=== PATIENT | male | born 1965 | race Caucasian/White ===

== ENCOUNTER 2022-11-29 03:15 | Inpatient (IN) ==
[2022-11-29] MEDS ORDERED: LIBRIUM PO PRN ×2 (14:14→18:00)
[2022-11-29] MEDS ORDERED: TAB-A-VITE PO SCH (15:00)
[2022-11-29] MEDS ORDERED: NS 1,000 ML IV 1,000 ML with MVI INJ (ADULT) 10 ML IV SCH ×2 (15:00)
[2022-11-29] MEDS ORDERED: THIAMINE HCL INJ IM SCH (15:00)
[2022-11-29 16:12] LABS: ABG ALLEN TEST POS; ABG BASE EXCESS 3.3 mmol/L (-2.0-2.0); ABG HCO3 28.5 mmol/L (22-26)
[2022-11-29 16:35] LABS: BASOPHILS % (AUTO) 0.4 % (0.2-1.0); EOSINOPHILS # (AUTO) 0.2 x10^3/uL (0.0-0.2); EOSINOPHILS % (AUTO) 3.2 % (0.9-2.9); HEMATOCRIT 24.4 % (42.0-54.0); HEMOGLOBIN 8.4 g/dL (13.5-18.0); LYMPHOCYTES # (AUTO) 1.6 X10^3/uL (1.3-2.9); LYMPHOCYTES % (AUTO) 23.7 % (21.0-51.0); MEAN CORPUSCULAR HEMOGLOBIN 34.4 pg (27.0-34.0); MEAN CORPUSCULAR HGB CONC 34.2 g/dL (33.0-35.0); MEAN CORPUSCULAR VOLUME 100.5 fL (80.0-100.0); MEAN PLATELET VOLUME 7.8 fL (7.4-11.0); MONOCYTES # (AUTO) 0.9 x10^3/uL (0.3-0.8); NEUTROPHILS # (AUTO) 4.1 x10^3/uL (2.2-4.8); NEUTROPHILS % (AUTO) 59.7 % (42.0-75.0); PLATELET COUNT 278 X10^3/uL (150.0-450.0); RED BLOOD COUNT 2.43 X10^6/uL (4.7-6.0); RED CELL DISTRIBUTION WIDTH 14.5 % (11.6-16.5); WHITE BLOOD COUNT 6.8 X10^3/uL (3.6-10.0)
[2022-11-29] MEDS ORDERED: PROVENTIL NEB TX 0.083% 2.5MG/ 3ML ONE (16:39)
--- NOTE | 2022-11-29 16:44 | DR.H&P ---
H&P - History & Physical for Day of: H&P Date: 11/29/22 - Chief Complaint Chief Complaint: weakness, altered mental status, alcohol abuse - History of Present Illness History of Present Illness: Patient is a 57 year old male that is a direct admit from Dr. Loco's office secondary to generalized weakness, altered mental status and ETOH abuse. Girlfriend presented with patient and reports that he has been weak since being discharged from [facility] on the . Reported that he stayed 11 days at [facility] due to N/V, dehydratiom, hypokalemia, hyponatremia and histor of bladder cancer. Reports that the patient fell this morning while trying to get to the restroom. Patient will be admitted for further evaluation. - Past Medical History Past Medical History: COPD, Hypertension, Liver Disease - Social History Alcohol Use: Heavy, DAILY Drug Use: None - Review of Systems Constitutional: See HPI Eyes: See HPI ENT: See HPI Respiratory: See HPI Cardiovascular: See HPI Gastrointestinal: See HPI Genitourinary: See HPI Musculoskeletal: See HPI Skin: See HPI Neurological: See HPI - Physical Exam Vital Signs: Vital Signs Temperature 99.4 F Pulse Rate 97 Respiratory Rate 20 O2 Sat by Pulse Oximetry 93 11/29/22 16:00 11/29/22 16:14 11/29/22 16:12 Temperature 99.4 F Pulse Rate 97 H Pulse Rhythm [Apical] Regular Pulse Strength [Apical] Normal Respiratory Rate 20 Respiratory Depth Shallow Respiratory Effort Non-Labored Respiratory Pattern Irregular O2 Sat by Pulse Oximetry 93 L Oxygen Delivery Method Room Air Weight 105 lb 8 oz Oriented: Time, Person, Place Eyes: Other (jaundice) Ear: Normal Nose: Normal Throat: Normal Respiratory: Diminished Throughout Cardiovascular: Tachycardia : Normal Auscultation: Bowel Sounds: Normal Palpation: Normal Tenderness: Normal Skin: Decreased Turgur Musculoskeletal: Normal Psychiatric: Normal Mood Description: Flat Affect: Flat Speech Pattern: Clear - Assessment/Plan (1) ETOH abuse Status: Acute (2) Altered mental state Status: Acute (3) Weakness Status: Acute - Allergies Allergies/Adverse Reactions: Allergies Allergy/AdvReac Type Severity Reaction Status Date / Time No Known Drug Allergies Allergy Verified 11/29/22 16:12
[2022-11-29 16:49] LABS: AMMONIA 40 umol/L (11-32)
[2022-11-29 16:59] LABS: ALANINE AMINOTRANSFERASE 33 Units/L (12-78); ALKALINE PHOSPHATASE 109 Units/L (46-116); AMYLASE 67 Units/L (25-115); ASPARTATE AMINO TRANSFERASE 50 Units/L (15-37); BLOOD UREA NITROGEN 7 mg/dL (7-18); CALCIUM 8.2 mg/dL (8.5-10.1); CARBON DIOXIDE 27.8 mmol/L (21-32); CHLORIDE 102 mmol/L (98-107); COR CA(FOR HYPOALB) 9.8 mg/dL (8.5-10.1); CREATININE 0.75 mg/dL (0.70-1.30); FREE T4 (FREE THYROXINE) 1.43 ng/dL (0.76-1.46); GLUCOSE 107 mg/dL (65-99); LIPASE 53 Units/L (73-393); SODIUM 138 mmol/L (136-145); TOTAL PROTEIN 5.3 g/dL (6.4-8.2); TSH (3RD GENERATION) 0.829 uIU/mL (0.358-3.74); eGFR NON BLACK RACES > 60 (>60)
[2022-11-29] MEDS ORDERED: PROVENTIL NEB TX 0.083% 2.5MG/ 3ML NEB SCH (17:00)
[2022-11-29 17:01] LABS: POTASSIUM 2.8 mmol/L (3.5-5.1)
[2022-11-29 17:12] LABS: INR 1.15 (0.8-1.3)
[2022-11-29 17:13] VITALS: BMI 15.5
[2022-11-29] MEDS ORDERED: MICRO K EXTEN CAP 10 MEQ PO PRN (17:19)
[2022-11-29] MEDS ORDERED: K-DUR TAB 20 MEQ PO PRN (17:19)
[2022-11-29] MEDS ORDERED: POTASSIUM CHL 60 MEQ/NS 0.45% 500 ML IV PRN (17:19)
[2022-11-29] MEDS ORDERED: POTASSIUM CHLORIDE LIQ PO PRN (17:19)
[2022-11-29] MEDS ORDERED: POTASSIUM CHL 40 MEQ/NS 0.45% 500 ML IV PRN (17:19)
[2022-11-29] MEDS ORDERED: K-RIDER 10 MEQ/NS 100 ML 10 MEQ/100 ML BAG IV PRN (17:19)
[2022-11-29] MEDS: PROVENTIL NEB TX 0.083% 2.5MG/ 3ML NEB SCH ×2 (17:52→21:25)
[2022-11-29] MEDS: NS 1,000 ML IV 1,000 ML with MVI INJ (ADULT) 10 ML IV SCH ×2 (17:56)
[2022-11-29] MEDS: MAGNESIUM SULFATE 1 GRAM/100 mL PREMIX 1 G/100 ML BAG IV PRN ×6 (18:14→23:13)
[2022-11-29] MEDS: KLOR-CON PO PRN ×2 (18:15→23:25)
[2022-11-29] MEDS: NICOTINE PATCH TD SCH (20:14)
[2022-11-29] MEDS ORDERED: PULMICORT NEB TX 0.5 MG NEB SCH (21:00)
[2022-11-29] MEDS: PULMICORT NEB TX 0.5 MG NEB SCH (21:35)
[2022-11-29 21:37] LABS: BILIRUBIN,URINE NEGATIVE (NEGATIVE); BLOOD/HEMOGLOBIN,URINE 2+ (NEGATIVE); GLUCOSE, URINE NEGATIVE (NEGATIVE); KETONES,URINE NEGATIVE (NEGATIVE); LEUKOCYTE ESTERASE ,URINE 1+ (NEGATIVE); NITRITES,URINE NEGATIVE (NEGATIVE); PROTEIN,URINE 1+ (NEGATIVE); UROBILINOGEN,URINE NORMAL (NORMAL)
[2022-11-29 21:42] LABS: APPEARANCE,URINE CLEAR (CLEAR); COLOR,URINE YELLOW (YELLOW)
[2022-11-29 21:43] LABS: BACTERIA,URINE TRACE /HPF (NEGATIVE); HYALINE CASTS, URINE FEW /LPF (NEGATIVE); SQUAMOUS EPITHELIAL CELL,UR FEW /HPF (NEGATIVE)
[2022-11-30] MEDS: NS 1,000 ML IV 1,000 ML with MVI INJ (ADULT) 10 ML IV SCH ×8 (03:53→17:27)
[2022-11-30 05:14] LABS: BASOPHILS # (AUTO) 0.1 X10^3/uL (0.0-0.1); EOSINOPHILS # (AUTO) 0.2 x10^3/uL (0.0-0.2); EOSINOPHILS % (AUTO) 3.7 % (0.9-2.9); HEMATOCRIT 25.8 % (42.0-54.0); LYMPHOCYTES # (AUTO) 1.4 X10^3/uL (1.3-2.9); LYMPHOCYTES % (AUTO) 24.1 % (21.0-51.0); MEAN CORPUSCULAR HEMOGLOBIN 35.1 pg (27.0-34.0); MEAN CORPUSCULAR HGB CONC 34.8 g/dL (33.0-35.0); MEAN CORPUSCULAR VOLUME 100.9 fL (80.0-100.0); MEAN PLATELET VOLUME 8.7 fL (7.4-11.0); MONOCYTES # (AUTO) 0.5 x10^3/uL (0.3-0.8); MONOCYTES % (AUTO) 7.6 % (0.0-13.0); NEUTROPHILS # (AUTO) 3.8 x10^3/uL (2.2-4.8); NEUTROPHILS % (AUTO) 63.6 % (42.0-75.0); PLATELET COUNT 272 X10^3/uL (150.0-450.0); RED BLOOD COUNT 2.55 X10^6/uL (4.7-6.0)
[2022-11-30 05:31] LABS: ALANINE AMINOTRANSFERASE 32 Units/L (12-78); ALKALINE PHOSPHATASE 118 Units/L (46-116); ASPARTATE AMINO TRANSFERASE 54 Units/L (15-37); BLOOD UREA NITROGEN 7 mg/dL (7-18); CHLORIDE 103 mmol/L (98-107); COR CA(FOR HYPOALB) 9.6 mg/dL (8.5-10.1); COR NA(FOR HYPERGLY) 138 mmol/L (136-145); CREATININE 0.72 mg/dL (0.70-1.30); GLUCOSE 115 mg/dL (65-99); POTASSIUM 3.7 mmol/L (3.5-5.1); SODIUM 138 mmol/L (136-145); TOTAL PROTEIN 5.5 g/dL (6.4-8.2); eGFR NON BLACK RACES > 60 (>60)
--- NOTE | 2022-11-30 07:58 | RAD ---
HISTORYDehydrationSTUDYCHEST, 1 VIEWCOMPARISONNone.TECHNIQUEPA or AP view of the chestFINDINGSCardiac and mediastinal contours are within normal limits. Lungs are hyperexpanded. Right costophrenic sulcus is not completely imaged. No visualized consolidation or segmental lung collapse. No discernible pleural effusion or pneumothorax. ORIF of the left humerus noted.IMPRESSIONHyperexpanded lungs can be seen with COPD or a good inspiratory effort. Right costophrenic sulcus not completely imaged.Electronically signed by: Frederick Duncan (Nov 30, 2022 07:56:26)
[2022-11-30] MEDS: THIAMINE HCL INJ IVP SCH ×2 (08:17→21:07)
[2022-11-30] MEDS: KLOR-CON PO PRN (08:17)
[2022-11-30] MEDS: TAB-A-VITE PO SCH (08:17)
[2022-11-30] MEDS: NICOTINE PATCH TD SCH (08:17)
[2022-11-30] MEDS: PROTONIX INJ 40 MG VIAL IVP SCH ×2 (08:41→21:06)
[2022-11-30] MEDS: PROVENTIL NEB TX 0.083% 2.5MG/ 3ML NEB SCH ×4 (09:00→21:37)
[2022-11-30] MEDS: PULMICORT NEB TX 0.5 MG NEB SCH ×2 (09:01→21:37)
[2022-11-30 09:12] LABS: RETICULOCYTE % 0.88 % (0.8-2.2)
[2022-11-30 09:14] LABS: IRON 35 ug/dL (50-175)
[2022-11-30] MEDS: LIBRIUM PO SCH ×3 (09:57→21:07)
[2022-11-30] MEDS: BUTT CREAM (COMPOUND) TOP PRN ×2 (11:02→18:52)
[2022-11-30] MEDS: HEMOCYTE-PLUS PO SCH (14:04)
--- NOTE | 2022-11-30 17:44 | PCM.PROG ---
Progress Note - Progress Note for Day of Date of Exam: 11/30/22 - Subjective Subjective: PT IS 57 WM, DIRECT ADMIT FROM DR LEE[facility]S [place] OFFICE WITH WEAKNESS AND HYPOKALEMIA. PT HAD INCREASED CONFUSION, WITH HISTORY OF ALCOHOLIC LIVER DISEASE. PT AMMONIA ON ADMISSION WAS 40. PT WAS STARTED ON ELECTROLYTE REPLACEMENT WITH IMPROVING WEAKNESS. PT K AT 3.7 FROM 2.8 ON ADMISSION. PT HAS CXR WITH COPD FINDINGS. PT WAS HYPOXIC ON ABG, O2 SAT ON 2L 99% THIS AM. - Past Medical Family Social History Past Med/Fam/Surg Hx: No changes since H&P Allergies: Allergies No Known Drug Allergies Allergy (Verified 11/29/22 16:12) - Review of Systems ROS: No change since H&P - Vital Signs and I&O's Vital Signs: Vital Signs Temperature 98.1 F Temperature 98.2 F Pulse Rate 112 Pulse Rate 105 Pulse Rate 110 Pulse Rate 102 Pulse Rate 106 Pulse Rate 106 Pulse Rate 104 Pulse Rate 104 Pulse Rate 104 Pulse Rate 96 Pulse Rate 101 Pulse Rate 101 Pulse Rate 108 Respiratory Rate 16 Respiratory Rate 14 Respiratory Rate 34 Respiratory Rate 22 Respiratory Rate 23 Respiratory Rate 26 Respiratory Rate 23 Respiratory Rate 20 Respiratory Rate 30 Respiratory Rate 16 Respiratory Rate 15 Respiratory Rate 16 Respiratory Rate 20 Blood Pressure 152/77 Blood Pressure 144/86 Blood Pressure 144/86 Blood Pressure 113/69 Blood Pressure 105/68 O2 Sat by Pulse Oximetry 97 O2 Sat by Pulse Oximetry 99 O2 Sat by Pulse Oximetry 100 O2 Sat by Pulse Oximetry 98 O2 Sat by Pulse Oximetry 98 O2 Sat by Pulse Oximetry 98 O2 Sat by Pulse Oximetry 98 O2 Sat by Pulse Oximetry 93 O2 Sat by Pulse Oximetry 100 O2 Sat by Pulse Oximetry 99 O2 Sat by Pulse Oximetry 100 O2 Sat by Pulse Oximetry 97 11/30/22 14:00 11/30/22 15:00 11/30/22 16:00 Temperature 98.1 F Pulse Rate 106 H 106 H 102 H Respiratory Rate 26 H 23 22 O2 Sat by Pulse Oximetry 98 98 100 Oxygen Delivery Method Nasal Cannula Oxygen Flow Rate 2 Blood Pressure 144/86 Blood Pressure Mean Blood Pressure Source Automatic Cuff Blood Pressure Position Semi Langston's 11/30/22 16:00 11/30/22 16:39 11/30/22 16:39 Temperature Pulse Rate 110 H 105 H Respiratory Rate 34 H 14 O2 Sat by Pulse Oximetry 99 Oxygen Delivery Method Oxygen Flow Rate Blood Pressure 144/86 Blood Pressure Mean 109 Blood Pressure Source Blood Pressure Position 11/30/22 17:00 11/30/22 17:00 Temperature Pulse Rate 112 H Respiratory Rate 16 O2 Sat by Pulse Oximetry 97 Oxygen Delivery Method Oxygen Flow Rate Blood Pressure 152/77 Blood Pressure Mean 104 Blood Pressure Source Blood Pressure Position Intake and Output: Intake & Output 11/28/22 11/29/22 11/30/22 12/01/22 11:59 11:59 11:59 11:59 Intake Total 2455 / 2455 1135 / 1135 Balance 2455 / 2455 1135 / 1135 - Physical Exam Oriented: Time, Person, Place Eyes: Other (jaundice) Ear: Normal Nose: Normal Throat: Normal Respiratory: Diminished, Wheezes Cardiovascular: Tachycardia : Normal Auscultation: Bowel Sounds: Normal Tenderness: Normal Skin: Decreased Turgur Musculoskeletal: Normal Psychiatric: Anxiety Affect: Anxious Speech Pattern: Appropriate, Delayed - Laboratory and Diagnostics Result Diagrams: 11/30/22 04:16 11/30/22 04:16 Labs: Laboratory WBC 6.0 X10^3/uL (3.6-10.0) 11/30/22 04:16 RBC 2.55 X10^6/uL (4.7-6.0) L 11/30/22 04:16 Hgb 9.0 g/dL (13.5-18.0) L 11/30/22 04:16 Hct 25.8 % (42.0-54.0) L 11/30/22 04:16 MCV 100.9 fL (80.0-100.0) H 11/30/22 04:16 MCH 35.1 pg (27.0-34.0) H 11/30/22 04:16 MCHC 34.8 g/dL (33.0-35.0) 11/30/22 04:16 RDW 15.0 % (11.6-16.5) 11/30/22 04:16 Plt Count 272 X10^3/uL (150.0-450.0) 11/30/22 04:16 MPV 8.7 fL (7.4-11.0) 11/30/22 04:16 Neut % (Auto) 63.6 % (42.0-75.0) 11/30/22 04:16 Lymph % (Auto) 24.1 % (21.0-51.0) 11/30/22 04:16 [place] % (Auto) 7.6 % (0.0-13.0) 11/30/22 04:16 Eos % (Auto) 3.7 % (0.9-2.9) H 11/30/22 04:16 Baso % (Auto) 1.0 % (0.2-1.0) 11/30/22 04:16 Neut # (Auto) 3.8 x10^3/uL (2.2-4.8) 11/30/22 04:16 Lymph # (Auto) 1.4 X10^3/uL (1.3-2.9) 11/30/22 04:16 [place] # (Auto) 0.5 x10^3/uL (0.3-0.8) 11/30/22 04:16 Eos # (Auto) 0.2 x10^3/uL (0.0-0.2) 11/30/22 04:16 Baso # (Auto) 0.1 X10^3/uL (0.0-0.1) 11/30/22 04:16 Absolute Nucleated RBC 0.1 /100WBC 11/30/22 04:16 Absolute Retic 0.0228 10^6/uL 11/30/22 04:16 Percent Retic 0.88 % (0.8-2.2) 11/30/22 04:16 PT 14.5 SECONDS (11.8-14.3) 11/29/22 16:25 INR Target Range - 11/29/22 16:25 INR 1.15 (0.8-1.3) 11/29/22 16:25 Sample Site Lrad 11/29/22 16:10 ABG pH 7.410 (7.35-7.45) 11/29/22 16:10 ABG pCO2 45.0 mmHg (35.0-45.0) 11/29/22 16:10 ABG pO2 62.0 mmHg (80.0-100.0) L 11/29/22 16:10 ABG HCO3 28.5 mmol/L (22-26) H 11/29/22 16:10 ABG O2 Saturation 92.0 % (90-100) 11/29/22 16:10 ABG Base Excess 3.3 mmol/L (-2.0-2.0) H 11/29/22 16:10 Odin Test Pos 11/29/22 16:10 A-a Gradient 31.0 mmHg 11/29/22 16:10 FiO2 21.0 11/29/22 16:10 Blood Gas Comments Aki well ms 11/29/22 16:10 Sodium 138 mmol/L (136-145) 11/30/22 04:16 Corrected Sodium 138 mmol/L (136-145) 11/30/22 04:16 Potassium 3.7 mmol/L (3.5-5.1) 11/30/22 04:16 Chloride 103 mmol/L (98-107) 11/30/22 04:16 Carbon Dioxide 29.0 mmol/L (21-32) 11/30/22 04:16 BUN 7 mg/dL (7-18) 11/30/22 04:16 Creatinine 0.72 mg/dL (0.70-1.30) 11/30/22 04:16 Est GFR (MDRD) Af Amer > 60 (>60) 11/30/22 04:16 Est GFR (MDRD) Non-Af > 60 (>60) 11/30/22 04:16 Glucose 115 mg/dL (65-99) H 11/30/22 04:16 Calcium 8.0 mg/dL (8.5-10.1) L 11/30/22 04:16 Corrected Calcium 9.6 mg/dL (8.5-10.1) 11/30/22 04:16 Magnesium 2.0 mg/dL (2.0-2.9) 11/30/22 04:16 Iron 35 ug/dL (50-175) L 11/30/22 04:16 Ferritin 631 ng/mL (26-388) H 11/30/22 04:16 Total Bilirubin 0.30 mg/dL (0.2-1.0) 11/30/22 04:16 AST 54 Units/L (15-37) H 11/30/22 04:16 ALT 32 Units/L (12-78) 11/30/22 04:16 Alkaline Phosphatase 118 Units/L (46-116) H 11/30/22 04:16 Ammonia 40 umol/L (11-32) H 11/29/22 16:25 Total Protein 5.5 g/dL (6.4-8.2) L 11/30/22 04:16 Albumin 2.0 g/dL (3.4-5.0) L 11/30/22 04:16 Globulin 3.5 g/dL (2.5-4.5) 11/30/22 04:16 Albumin/Globulin Ratio 0.6 Ratio (1.1-2.1) L 11/30/22 04:16 Amylase 67 Units/L (25-115) 11/29/22 16:25 Lipase 53 Units/L (73-393) L 11/29/22 16:25 Vitamin B12 > 2000 pg/mL (193-986) H 11/30/22 04:16 Folate 13.0 ng/mL (>8.6) 11/30/22 04:16 Free T4 1.43 ng/dL (0.76-1.46) 11/29/22 16:25 TSH 3rd Generation 0.829 uIU/mL (0.358-3.74) 11/29/22 16:25 Specimen Type Clean catch urine 11/29/22 21:22 Urine Color Yellow (YELLOW) 11/29/22 21: Urine Appearance Clear (CLEAR) 11/29/22 21: Urine pH 6.0 (5.0 - 8.0) 11/29/22 21: Ur Specific [place]man 1.025 (1.000-1.030) 11/29/22 21: Urine Protein 1+ (NEGATIVE) 11/29/22 21: Urine Glucose (UA) Negative (NEGATIVE) 11/29/22 21: Urine Ketones Negative (NEGATIVE) 11/29/22 21: Urine Blood 2+ (NEGATIVE) 11/29/22 21: Urine Nitrite Negative (NEGATIVE) 11/29/22 21: Urine Bilirubin Negative (NEGATIVE) 11/29/22 21: Urine Urobilinogen Normal (NORMAL) 11/29/22 21: Ur Leukocyte Esterase 1+ (NEGATIVE) 11/29/22 21: Urine RBC 3-5 /HPF (0-3) A 11/29/22 21: Urine WBC 0-2 /HPF (0-5) 11/29/22 21:22 Ur Squamous Epith Cells Few /HPF (NEGATIVE) 11/29/22 21:22 Urine Bacteria Trace /HPF (NEGATIVE) 11/29/22 21:22 Hyaline Casts Few /LPF (NEGATIVE) 11/29/22 21:22 Urine Mucus Moderate /HPF (NEGATIVE) 11/29/22 21:22 Ur Culture Indicated? No/not indicated 11/29/22 21:22 Stl Occult Blood (IFOB) Negative (NEGATIVE) 11/30/22 10:53 - Plan (1) Hypokalemia Status: Acute Plan: IV HYDRATION, POTASSIUM REPLACEMENT. CARDIAC MONITORING. BP CONTROL, PRN SUPPLEMENTAL O2. WITHDRAWAL PRECAUTIONS. CT ABD/PELVIS WITH CONTRAST, SPEECH CONSULT DUE TO DYSPHAGIA (2) COPD (chronic obstructive pulmonary disease) Status: Acute (3) Alcoholic liver disorder Status: Acute (4) ETOH abuse Status: Acute (5) Weakness Status: Acute
[2022-11-30] MEDS: ROCEPHIN VIAL 1 GRAM 1 G in NS 100 ML IV 100 ML IV SCH (17:46)
[2022-12-01] MEDS: NS 1,000 ML IV 1,000 ML with MVI INJ (ADULT) 10 ML IV SCH ×4 (03:49→10:22)
[2022-12-01 04:49] LABS: BASOPHILS % (AUTO) 0.3 % (0.2-1.0); EOSINOPHILS # (AUTO) 0.2 x10^3/uL (0.0-0.2); HEMOGLOBIN 9.1 g/dL (13.5-18.0); LYMPHOCYTES # (AUTO) 1.3 X10^3/uL (1.3-2.9); LYMPHOCYTES % (AUTO) 14.1 % (21.0-51.0); MEAN CORPUSCULAR HEMOGLOBIN 35.1 pg (27.0-34.0); MEAN CORPUSCULAR VOLUME 100.3 fL (80.0-100.0); MEAN PLATELET VOLUME 8.6 fL (7.4-11.0); MONOCYTES # (AUTO) 0.6 x10^3/uL (0.3-0.8); MONOCYTES % (AUTO) 6.5 % (0.0-13.0); NEUTROPHILS % (AUTO) 77.1 % (42.0-75.0); PLATELET COUNT 275 X10^3/uL (150.0-450.0); RED BLOOD COUNT 2.59 X10^6/uL (4.7-6.0); RED CELL DISTRIBUTION WIDTH 14.9 % (11.6-16.5)
[2022-12-01 04:57] LABS: AMMONIA 17 umol/L (11-32)
[2022-12-01 05:02] LABS: ALANINE AMINOTRANSFERASE 29 Units/L (12-78); ALBUMIN 1.8 g/dL (3.4-5.0); ALKALINE PHOSPHATASE 114 Units/L (46-116); ASPARTATE AMINO TRANSFERASE 45 Units/L (15-37); BLOOD UREA NITROGEN 6 mg/dL (7-18); CALCIUM 8.2 mg/dL (8.5-10.1); CARBON DIOXIDE 31.8 mmol/L (21-32); CHLORIDE 102 mmol/L (98-107); CREATININE 0.55 mg/dL (0.70-1.30); GLUCOSE 86 mg/dL (65-99); POTASSIUM 3.8 mmol/L (3.5-5.1); SODIUM 137 mmol/L (136-145); TOTAL PROTEIN 5.2 g/dL (6.4-8.2); eGFR NON BLACK RACES > 60 (>60)
[2022-12-01] MEDS: LIBRIUM PO SCH ×2 (05:17→13:15)
[2022-12-01] MEDS: BUTT CREAM (COMPOUND) TOP PRN ×2 (05:43→08:00)
[2022-12-01] MEDS ORDERED: LOMOTIL PO ONE (07:58)
--- NOTE | 2022-12-01 08:31 | RAD ---
HISTORYCOPD, SOBSTUDYCHEST, 1 [id number]/2023.TECHNIQUEPA or AP view of the chestFINDINGSCardiac and mediastinal contours are within normal limits. Lungs are hyperexpanded. No consolidation or segmental lung collapse. No definite pleural effusion or pneumothorax.IMPRESSIONHyperexpanded lungs consistent with COPD. If there is need to evaluate for pulmonary nodules, CT chest is recommended.Electronically signed by: Frederick Duncan (Dec 01, 2022 08:30:16)
[2022-12-01] MEDS: KLOR-CON PO PRN (08:38)
[2022-12-01] MEDS: PROTONIX INJ 40 MG VIAL IVP SCH (08:38)
[2022-12-01] MEDS: TAB-A-VITE PO SCH (08:38)
[2022-12-01] MEDS: NICOTINE PATCH TD SCH (08:38)
[2022-12-01] MEDS: HEMOCYTE-PLUS PO SCH (08:38)
[2022-12-01] MEDS: THIAMINE HCL INJ IVP SCH (08:39)
[2022-12-01] MEDS: ROCEPHIN VIAL 1 GRAM 1 G in NS 100 ML IV 100 ML IV SCH (08:39)
[2022-12-01] MEDS ORDERED: LOVENOX INJ 40 MG SYR SC SCH (09:00)
[2022-12-01] MEDS: PROVENTIL NEB TX 0.083% 2.5MG/ 3ML NEB SCH ×2 (09:05→13:10)
[2022-12-01] MEDS: PULMICORT NEB TX 0.5 MG NEB SCH (09:05)
[2022-12-01 12:37] VITALS: TEMP 98.7
--- NOTE | 2022-12-01 15:53 | CT ---
ABDOMEN/PELVIS WITH CONHISTORY: ABDOMINAL DISTENTION, LIVER DISEASEComparison:September 06, 2022Technique:Multiple axial images of the abdomen and pelvis were obtained from the lung bases to the pubic symphysis following the administration of IV contrast as well as oral contrast . Dose reduction techniques including Automated Exposure Control (AEC) and adjustment of mA and kV were utlized.Findings:The heart is normal in size. There is no pericardial effusion. Trace bilateral effusions with atelectasis.Re-demonstration of thickening of the distal esophagus.Mild nodularity of the liver. No focal lesions. The portal vein is patent. No ductal dilitation. Gallbladder is present. No calcified gallstones or gallbladder wall thickening. The pancreas is unremarkable. Adrenal glands are normal. Kidneys enhance symmetrically without hydronephrosis or nephrolithiasis. Simple right renal cyst.Severe inflammatory change of the cecum and right colon. Appendix also appears inflamed although this is likely reactive. No abnormal appearing mesenteric or retroperitoneal lymph nodes. . No free fluid or fluid collections.The bladder is normal in appearance. Prostate not well seen. No free fluid or abnormal pelvic lymph nodes.No aggressive osseous lesions.IMPRESSION:1.Severe inflammatory change of the cecum and right colon. Correlate with CBC as tip flatus is possible in the setting of neutropenia.2. Nodularity of the liver and trace bilateral effusions.Electronically signed by: ELSA ZUNIGA (Dec 01, 2022 15:51:28)
[2022-12-01 16:05] VITALS: BP 145/80; PULSE 102; RESP 17; O2SAT 98
== END 2022-12-01 18:30 | disposition home health service (06) | DRG 948 ==
LOC: MED/SURG → OBSVTOIN 03:15 → ICU 13:53
PROVIDERS: ADMIT Internal Medicine; ATTEND Internal Medicine